=== PATIENT | male | born 1990 | race Hispanic/Latino ===

== ENCOUNTER 2020-12-06 08:30 | Emergency (ER) | payer SELFPAY ==
[2020-12-06 09:02] LABS: BASOPHILS % (AUTO) 0.4 % (0.0-5.0); EOSINOPHILS % (AUTO) 2.2 % (0.0-8.0); HEMATOCRIT 43.2 % (42-54); LYMPHOCYTES % (AUTO) 14.2 % (21.0-51.0); MEAN CORPUSCULAR HEMOGLOBIN 28.6 pg (27.0-33.0); MEAN CORPUSCULAR HGB CONC 33.3 g/dL (32.0-36.0); MEAN CORPUSCULAR VOLUME 85.7 fL (79-99); MONOCYTES % (AUTO) 6.3 % (3.0-13.0); NEUTROPHILS % (AUTO) 76.7 % (40.0-77.0); PLATELET COUNT (AUTO) 272 K/uL (130-400); RED BLOOD CELL COUNT(AUTO) 5.04 MIL/uL (4.50-6.20); RED CELL DISTRIBUTION WIDTH 13.6 % (11.0-15.5); WHITE BLOOD COUNT (AUTO) 9.5 K/uL (4.8-10.8)
[2020-12-06 09:11] LABS: CREATININE 0.8 mg/dL (0.5-1.5); POTASSIUM 3.4 mmol/L (3.5-5.1)
[2020-12-06 09:14] LABS: APPEARANCE,URINE Clear (CLEAR); BILIRUBIN,URINE Small (NEGATIVE); COLOR,URINE Dark Yellow (YELLOW); GLUCOSE, URINE (UA) Negative (NEGATIVE); KETONES,URINE >=80 mg/dL (NEGATIVE); LEUKOCYTE ESTERASE ,URINE Negative (NEGATIVE); NITRATE,URINE Negative (NEGATIVE); OCCULT BLOOD,URINE Negative (NEGATIVE); PROTEIN,URINE POS 1+ mg/dL (NEGATIVE)
[2020-12-06 09:16] LABS: ALBUMIN 4.3 g/dL (3.5-5.0); BILIRUBIN,TOTAL 0.7 mg/dL (0.2-1.0); TOTAL PROTEIN, SERUM 7.7 g/dL (6.0-8.3)
[2020-12-06 09:58] LABS: RBC,URINE 0-1 /HPF (0-1); WBC,URINE 0-1 /HPF (0-1)
[2020-12-06 09:59] LABS: BACTERIA,URINE Few /HPF (None Seen); MUCUS,URINE Moderate LPF (None Seen); SQUAMOUS EPITHELIAL CELL,UR 0-2 /HPF (0-2)
== END 2020-12-06 11:23 | disposition home or self-care (01) ==
LOC: EDH 08:30
DX: N52.9 Male erectile dysfunction, unspecified (principal); Z72.0 Tobacco use
CPT/HCPCS: 36415; 80053; 81001; 85025; 87486; 87797

== ENCOUNTER 2023-08-10 21:11 | Emergency (ER) | payer OTHER ==
[~2023-08-10] VITALS: Ht 233.7 cm; Wt 59.0 kg
[2023-08-11] MEDS ORDERED: IBUPROFEN 600 MG TABLET PO ONE
[2023-08-11] MEDS ORDERED: CEPHALEXIN 500 MG CAPSULE PO ONE
[2023-08-11 00:06] LABS: APPEARANCE,URINE CLEAR (CLEAR); BILIRUBIN,URINE NEGATIVE (NEGATIVE); COLOR,URINE LIGHT-YELLOW (YELLOW); GLUCOSE, URINE (UA) NEGATIVE (NEGATIVE); KETONES,URINE NEGATIVE (NEGATIVE); LEUKOCYTE ESTERASE ,URINE NEGATIVE Leu/uL (NEGATIVE); NITRATE,URINE NEGATIVE (NEGATIVE); OCCULT BLOOD,URINE NEGATIVE (NEGATIVE); PROTEIN,URINE NEGATIVE (NEGATIVE); UROBILINOGEN,URINE 0.2 mg/dL (0.2-1.0)
[2023-08-11 00:11] LABS: ADD UA MICROSCOPIC NO
[2023-08-11] MEDS ORDERED: CEPH500T PO (00:24)
[2023-08-11 00:43] VITALS: BP 118/62; PULSE 82; RESP 18; O2SAT 100
== END 2023-08-11 00:44 | disposition home or self-care (01) ==
LOC: EDH 21:11
DX: N48.22 Cellulitis of corpus cavernosum and penis (principal); W57.XXXA Bitten or stung by nonvenomous insect and other nonvenomous arthropods, initial encounter; Y93.89 Activity, other specified; Y92.89 Other specified places as the place of occurrence of the external cause; Y99.8 Other external cause status
CPT/HCPCS: 81003

== ENCOUNTER 2023-09-01 12:16 | Emergency (ER) | payer OTHER ==
[~2023-09-01] VITALS: Ht 162.6 cm; Wt 65.8 kg
[~2023-09-01 12:16] MED LIST: CEPH500T PO
[2023-09-01] MEDS ORDERED: DIPH,PERTUSS(ACELL),TET VAC/PF 0.5 ML VIAL IM ONE (13:30)
[2023-09-01] MEDS ORDERED: LIDOCAINE HCL 1% 20 ML VIAL INJ SCH (13:30)
[2023-09-01] MEDS ORDERED: ACETAMINOPHEN 500 MG TABLET PO ONE (13:30)
[2023-09-01] MEDS ORDERED: TETANUS/DIPHTHERIA TOXOID [ADULT] 0.5 ML VIAL IM ONE (13:30)
[2023-09-01] MEDS ORDERED: IBUP-2070 PO (15:06)
[2023-09-01] MEDS ORDERED: MUPI22OI2 TP (15:06)
[2023-09-01 15:13] VITALS: BP 128/74; PULSE 88; RESP 18; O2SAT 98
== END 2023-09-01 15:19 | disposition home or self-care (01) ==
LOC: EDH 12:16
DX: S01.01XA Laceration without foreign body of scalp, initial encounter (principal); Z79.899 Other long term (current) drug therapy; X58.XXXA Exposure to other specified factors, initial encounter; Y93.67 Activity, basketball; Y92.39 Other specified sports and athletic area as the place of occurrence of the external cause; Y99.8 Other external cause status
CPT/HCPCS: 12002; 70450; 90471; 90714

== ENCOUNTER 2023-09-09 10:38 | Emergency (ER) | payer OTHER ==
[~2023-09-09] VITALS: Ht 160 cm; Wt 63.5 kg
[~2023-09-09 10:38] MED LIST changes: +IBUP-2070 PO; +MUPI22OI2 TP
[2023-09-09 10:42] VITALS: BP 113/66; PULSE 74; RESP 16; O2SAT 98
== END 2023-09-09 12:17 | disposition home or self-care (01) ==
LOC: EDH 10:38
DX: S01.01XD Laceration without foreign body of scalp, subsequent encounter (principal); Z79.899 Other long term (current) drug therapy; X58.XXXD Exposure to other specified factors, subsequent encounter
CPT/HCPCS: 99282